=== PATIENT | male | born 1995 | race Hispanic/Latino ===

== ENCOUNTER 2024-07-23 23:11 | Emergency (ER) | payer SELFPAY ==
[2024-07-23 23:20] VITALS: BP 113/65; PULSE 76; RESP 20; TEMP 36.8; O2SAT 97
[2024-07-24] MEDS: ONDANSETRON INJ 4 MG/2 ML VIAL IV PUSH (04:31)
[2024-07-24] MEDS: FAMOTIDINE 20 MG/2 ML VIAL IV PUSH (04:32)
[2024-07-24] MEDS: MAG HYDROX/AL HYDROX/SIMETH 30 ML UDC PO (04:33)
--- NOTE | 2024-07-24 04:35 | ED.ABDPAIN ---
HPI - Abdominal Pain General Chief Complaint: Abdominal Pain Stated Complaint: abd pain Time Seen by Provider: 07/24/24 03:47 History of Present Illness HPI narrative: 29-year-old male presenting to the emergency depart with gastritis type symptoms. He is Nauruan-speaking only in an supervisor compressed yeast service was used for primary translation. Patient endorses 2 days of burning epigastric pain that feels similar to his gastritis but not responsive to Pepcid or omeprazole. Has had similar presentations in the past. Denies any nausea, vomiting, abdominal pain, diarrhea constipation. Was otherwise feeling okay. Recent taking doxycycline for an unrelated infection. No history of H pylori and no history of EGD. Does not have a local GI doctor. Related Data Allergies Allergy/AdvReac Type Severity Reaction Status Date / Time No Known Allergies Allergy Verified 07/23/24 23:23 Review of Systems Review of Systems: As reviewed above in HPI Exam Narrative: GENERAL: [Well-appearing, well-nourished, and in no acute distress.] HEAD: [Normocephalic, atraumatic.] EYES: [PERRLA and EOMI.] ENT: Nares clear, no rhinorrhea or epistaxis. Mucous membranes moist. NECK: Supple. CHEST: [Clear to auscultation. No respiratory distress.] HEART: [Regular rate and rhythm]. No murmur heard. [Normal peripheral pulses.] ABDOMEN: [Soft, nondistended], [nontender], [No rigidity or guarding] EXTREMITIES: Normal range of motion. [No edema.] SKIN: Warm, dry, no rash. NEURO: [No focal deficits]. Alert and oriented [x3.] PSYCH: [Normal mood and affect.] Course Vital Signs Vital signs: Vital Signs Temperature 36.8 C 07/23/24 23:20 Pulse Rate 76 07/23/24 23:20 Respiratory Rate 20 07/23/24 23:20 Blood Pressure 113/65 07/23/24 23:20 Pulse Oximetry 97 07/23/24 23:20 Temperature 36.8 C 07/23/24 23:20 Pulse Rate 65 07/24/24 05:01 Respiratory Rate 15 07/24/24 05:01 Blood Pressure 112/73 07/24/24 05:01 Pulse Oximetry 99 07/24/24 05:01 MDM - Abdominal Pain MDM Narrative Medical decision making narrative: 29-year-old Nauruan-speaking male presenting with gastritis type symptoms for 2 days. Reports burning epigastric pain, sensation of sour taste on back was started on burning sensation. Feels similar to gastritis although not responsive to Pepcid or omeprazole for last few days. Has never had an EGD or been diagnosed with H pylori. He has normal vital signs, normal examination, afebrile. Soft nontender nondistended abdomen. Patient was given Pepcid, Maalox, Zofran, CBC, CMP and lipase were evaluated. Suspicion presently is for gastritis, peptic ulcer disease, pancreatitis, potential for ulcerations or strictures are possible but low given his duration of symptoms. Patient was given medications and re-evaluated afterwards with improvement. Laboratory studies are largely unremarkable. Patient was encouraged to continue taking his medications and will be sent home with Maalox for as needed dyspepsia. He will be sent with referral to our local GI Dr. Herrmann for evaluation outpatient. Lab Data 07/24/24 04:36 07/24/24 04:36 Labs: Lab Results 07/24/24 Range/Units 04:36 WBC 6.6 (4.5-10.0) K/mm3 RBC 5.02 (4.6-6.20) M/mm3 Hgb 15.2 (14.0-18.0) g/dL Hct 44.0 (42.0-52.0) % MCV 87.6 (80-100) fl MCH 30.3 (26-34) pg MCHC 34.5 (32-36) g/dl RDW 13.2 (11.5-14.5) % Plt Count 177 (150-375) k/mm3 MPV 10.0 (7.4-10.4) fl Immature Gran % (Auto) 0.2 (0-0.5) % Neut % (Auto) 47.1 (45.5-73.1) % Lymph % (Auto) 39.1 (18.3-44.2) % [place] % (Auto) 12.2 H (2.6-8.5) % Eos % (Auto) 1.2 (0-4.4) % Baso % (Auto) 0.2 (0.2-1.2) % Lymph # (Auto) 2.56 (0.9-3.2) K/mm3 [place] # (Auto) 0.8 H (0.1-0.6) K/mm3 Eos # (Auto) 0.1 (0-0.3) K/mm3 Baso # (Auto) 0.0 (0.0-0.1) K/mm3 Abs Immat Gran (auto) 0.01 (0.00-0.031) K/mm3 Absolute Neuts (auto) 3.1 (1.3-6.7) K/mm3 Absolute Nucleated RBC 0.000 (0.0-0.012) K/mm3 Nucleated RBC % 0.0 (0.0-0.2) % Sodium 140 (137-145) mmol/L Potassium 3.6 (3.4-5.0) mmol/L Chloride 102 (98-107) mmol/L Carbon Dioxide 25 (22-30) mmol/L Anion Gap 13 H (4-12) mmol/L BUN 16 (9-20) mg/dL Creatinine 0.73 (0.7-1.3) mg/dL Estim Creat Clear Calc Not Reportable Estimated GFR > 60 (59 - ) Glucose 84 (65-110) mg/dL Calcium 9.7 (8.4-10.2) mg/dL Total Bilirubin 0.7 (0.2-1.3) mg/dL AST 22 (17-59) U/L ALT 21 (6-50) U/L Alkaline Phosphatase 74 (38-126) U/L Total Protein 8.0 (6.3-8.2) g/dL Albumin 4.4 (3.5-5.1) g/dL Lipase 67 (23-300) U/L Discharge Plan Discharge Clinical Impression: Gastritis, GERD with esophagitis Patient Disposition: Home, Self-Care Condition: Stable Instructions: Antibiotic Form, Gastritis (ED), Upper Endoscopy (DC) Additional Instructions: Call Dr. Herrmann from Gastroenterology to schedule an outpatient appointment. Continue taking your Pepcid and omeprazole in addition to the Maalox we have prescribed for you. Return with any new concerns. Patient Language: Nauruan Prescriptions: New alum-mag hydroxide-simeth [Maalox Advanced] 200-200-20 mg/5 mL suspension 15 ml PO QID PRN (Reason: dyspepsia) Qty: 3000 0RF Rx Instructions: administer between meals and at bedtime Follow-up/Referrals: Sincere Li MD [Physician] - 1 Week (Gastritis, EGD referral) UNKNOWN,DOCTOR [Non-Staff] - Time of Disposition: 06:13
[2024-07-24 04:50] LABS: Basophils Percent Auto 0.2 % (0.2-1.2); Eosinophils Absolute Auto 0.1 K/mm3 (0-0.3); Eosinophils Percent Auto 1.2 % (0-4.4); Hemoglobin 15.2 g/dL (14.0-18.0); Immature Granulocyte Absolute 0.01 K/mm3 (0.00-0.031); Immature Granulocyte Percent A 0.2 % (0-0.5); Lymphocytes Absolute Auto 2.56 K/mm3 (0.9-3.2); Lymphocytes Percent Auto 39.1 % (18.3-44.2); Mean Corpuscular HGB Conc 34.5 g/dl (32-36); Mean Corpuscular Hemoglobin 30.3 pg (26-34); Mean Corpuscular Volume 87.6 fl (80-100); Monocytes Absolute Auto 0.8 K/mm3 (0.1-0.6); Monocytes Percent Auto 12.2 % (2.6-8.5); Neutrophils Absolute Auto 3.1 K/mm3 (1.3-6.7); Neutrophils Percent Auto 47.1 % (45.5-73.1); Platelet Count Result 177 k/mm3 (150-375); Red Blood Count 5.02 M/mm3 (4.6-6.20); Red Cell Distribution Width 13.2 % (11.5-14.5); White Blood Count 6.6 K/mm3 (4.5-10.0)
[2024-07-24 05:01] VITALS: BP 112/73; PULSE 65; RESP 15; O2SAT 99
[2024-07-24 05:06] LABS: Alanine Aminotransferase 21 U/L (6-50); Albumin Level 4.4 g/dL (3.5-5.1); Alkaline Phosphatase 74 U/L (38-126); Anion Gap 13 mmol/L (4-12); Aspartate Amino Transferase 22 U/L (17-59); Bilirubin,Total 0.7 mg/dL (0.2-1.3); Blood Urea Nitrogen 16 mg/dL (9-20); Calcium 9.7 mg/dL (8.4-10.2); Carbon Dioxide 25 mmol/L (22-30); Chloride 102 mmol/L (98-107); Estimated Glomerular Filt Rate > 60; Glucose 84 mg/dL (65-110); Lipase 67 U/L (23-300); Potassium 3.6 mmol/L (3.4-5.0); Sodium 140 mmol/L (137-145)
[2024-07-24 06:22] VITALS: BP 110/70; PULSE 60; RESP 17; O2SAT 98
== END 2024-07-24 06:24 | disposition home or self-care (01) ==
PROVIDERS: Emergency Provider Student in an Organized Health Care Education/Training Program
DX: K29.70 Gastritis, unspecified, without bleeding (principal); K21.00 Gastro-esophageal reflux disease with esophagitis, without bleeding
CPT/HCPCS: 36415; 80053; 83690; 85025; 96374; 96375; 99284; A9270; J2405

== ENCOUNTER 2025-01-13 01:19 | Day surgery (SDC) | payer SELFPAY ==
[2025-01-07 14:55] VITALS: BMI 22.7
--- OUTSIDE RECORDS SUMMARY | 2025-01-13 01:21 | XMS_ITS | Continuity of Care Document ---
Author Organization [facility] Address [address] [place] [address] Phone Care Team Providers Care Dock Worker Name Role Phone Juan PT, DPT, Liliana Unavailable Unavaila ble Procedures Procedure Date Therapeutic Activities Neuromuscular Re-Ed Therapeutic Exercise Therapeutic Activities Neuromuscular Re-Ed Therapeutic Exercise Therapeutic Activities Neuromuscular Re-Ed Therapeutic Exercise Therapeutic Activities Neuromuscular Re-Ed Therapeutic Exercise Therapeutic Activities Neuromuscular Re-Ed Therapeutic Exercise PT Evaluation Moderate Complexity Therapeutic Activities Therapeutic Exercise Advance Directives Directive Yes / No Effective Date File Name No Information Encounters Encounter Description Practice Location Reason(s) For Visit Diagnoses Date Provider Providers Copied on Encounter [facility] [address], [place], [place], [id number], tel:[phone] [place] No Information 5 Juan Ford. . [facility], [place], [place], [id number], tel:[phone] [facility] No Information 0 5 Juan Ford. . Referring Provider: Mary Orosco , [address] [facility], [place], [address]. tel:[phone] [place] [address], [place], [place], [id number], tel:[phone] [facility] No Information 5 Martinez Liliana. . Referring Provider: Mary Orosco [address] [place] [address], [place], [place], [facility]. tel:[phone], [id number], tel:[phone] [facility] No Information 4 Martinez Liliana. . Referring Provider: Mary Orosco , [address] [place] [address], [place], [place], [facility]. tel:[phone] [address], [place], [place], [id number], tel:[phone] [facility] No Information 4 Martinez Liliana. . Referring Provider: Mary Orosco , [id number] [place] [address], [place], [place], [facility]. tel:[phone], [id number], tel:[phone] [facility] No Information 4 Martinez Liliana. . Referring Provider: Carroll [address] [place] [address], [place], [facility]. tel:[phone], [id number], tel:[phone] [facility] No Information 4 Martinez Liliana. . Referring Provider: Carroll [address] [place] [address], [place], [place], [facility]. tel:[phone] Family History Family Member Type Diagnosis Age At Onset No Information Payers Payer name Insurance type Covered green party ID Authorjoela ayana(s) Self Pay - G[employer] Social History Type Description Quantity Date Captured Comments Sex Male Smoking Status No Information Chief Complaint And Reason For Visit No Information Reason For Referral Reason For Referral No Information History Of Present Illness Encounter Date Complaint History Of Prese nt Illness No Information Functional Status Date Functional Assessmen t No Information Instructions Date Instruction Additional Infor mation No Information Assessments Type Assessment Date No Information Patient Care Teams Name Effective Dates (start - stop) Status Members No Information
[2025-01-13 06:30] VITALS: BP 108/70; PULSE 68; RESP 18; TEMP 36.6; O2SAT 98
[2025-01-13] MEDS: LACTATED RINGERS 1,000 ML 150 ML IV CONT (06:53)
--- NOTE | 2025-01-13 07:19 | SUR.OPER ---
Communication with patient via rn procedure ID#[id number].
--- NOTE | 2025-01-13 07:27 | PM.HPGS ---
History of Present Illness History of Present Illness Consent: Risks, benefits, and alternatives have been discussed and questions answered. Patient agrees to proceed with procedure. Chief complaint: Gastro-esophageal reflux disease without esophagit Narrative: Cj Paredes is a 29 year old male here for first EGD, gerd on pantoprazole Review of Systems Review of Systems: All systems reviewed & are unremarkable except as noted in HPI and below PMFSH Past Medical History Medical History (Updated 09/17/24 @ 10:56 by Sincere Li MD) Epigastric pain GERD (gastroesophageal reflux disease) Social History Social History Smoking status: Never smoker Living arrangements: with family Meds Home Medications and Allergies Home Medications ?Medication ?Instructions ?Recorded ?Confirmed ?Type aluminum-mag hydroxide-simethicone 15 ml PO QID PRN dyspepsia #3,000 07/24/24 01/07/25 Rx 200 mg-200 mg-20 mg/5 mL oral susp mL (Maalox Advanced) pantoprazole 40 mg tablet,delayed 40 mg PO QAM 01/07/25 01/07/25 History release Allergies Allergy/AdvReac Type Severity Reaction Status Date / Time No Known Allergies Allergy Verified 01/13/25 06:36 Exam Const: General: comfortable and no acute distress HENMT: Face/Nose/Sinus: Normal nares present Eyes: General: appearance normal, both eyes and all related structures Neck: Neck: no JVD Resp: Auscultation: clear to auscultation bilaterally Cardio: Rate: regular rate Rhythm: regular rhythm GI: Inspection: non-distended GI Palp: Yes Soft to palpation Skin: General skin exam: normal color Neuro: Speech: normal speech Extrem: General: normal to inspection Psych: Mental Status: mental status grossly normal Assessment and Plan Assessment and plan (1) GERD (gastroesophageal reflux disease): Code(s): K21.9 - Gastro-esophageal reflux disease without esophagitis Status: Acute Assessment and Plan: egd with bx (2) Epigastric pain: Code(s): R10.13 - Epigastric pain Status: Acute
--- NOTE | 2025-01-13 07:33 | S_PTH ---
PATIENT: Cj Lester LOC: [facility]#:[id number] AGE/SX: 29/M ROOM: RE01/13/[address]: Sincere Li MD : 1995 BED: DIS: 01/13/2025 SPEC #: [id number] RECD: 01/13/25 08:56 STATUS: CELIA STEARNS #: [id number] SUHAS: 01/13/25 07:[address]: Sincere Li DEPT: [facility] Surgical RECD BY: Kate Manning ENTERED: 01/13/25 08:57 SP TYPE: Surgical OTHR DR: ACCESS SPECIALIST PHYSICIAN Tissues: A - Small Bowel Bx B - Gastric Biopsy Procedures: Hematoxylin and Eosin Stain Gross and Microscopic Level 4
[2025-01-13 07:35] VITALS: BP 101/54; PULSE 71; RESP 17; O2SAT 98
[2025-01-13 07:45] VITALS: BP 93/58; PULSE 65; RESP 16; O2SAT 98
[2025-01-13 07:55] VITALS: BP 99/65; PULSE 68; RESP 18; O2SAT 97
--- NOTE | 2025-01-13 08:04 | SUR.PHASEII ---
Product Development Director used for discharge instructions. #[id number]
== END 2025-01-13 08:08 | disposition home or self-care (01) ==
PROVIDERS: Referring Provider Internal Medicine Gastroenterology; Visit Provider Internal Medicine Gastroenterology
PROC: 0DJ08ZZ Inspection of Upper Intestinal Tract, Via Natural or Artificial Opening Endoscopic (ICD-10-PCS; CPT 43239; principal; 2025-01-13 07:30)
DX: K21.9 Gastro-esophageal reflux disease without esophagitis (principal); K31.84 Gastroparesis
CPT/HCPCS: 43239; 88305; J7120

== ENCOUNTER 2025-02-10 08:42 | Outpatient (CLI) | payer SELFPAY ==
--- NOTE | ~2025-02-10 | NM_ITS ---
EXAM: NM gastric emptying study DATE: 02/10/2025 13:38 INDICATION: Gastroesophageal reflux disease without esophagitis. TECHNIQUE: A gastric emptying study was performed using the methodology of Evin VALLE, et al. J Nucl Med 2007; 48:568-572. The patient was given a meal consisting of 2 scrambled eggs labeled with 0.972 mCi Tc-99m sulfur colloid, 2 slices of toast, two packages of jam, and approximately 120 mL of water. Simultaneous anterior and posterior 1-min images of the abdomen were obtained with the patient supine at multiple time points over a total period of 4 hours. The geometric mean of anterior and posterior views was determined, and the percentage retention was calculated for each time point. COMPARISON: None. FINDINGS: Gastric retention of the radiotracer-labeled meal was 58%, 23%, and 5% at the 1-hour, 2-hour, and 4-hour time points, respectively. With this technique, apparent rapid gastric emptying is suggested by <30% gastric retention at 1 hour. Delayed gastric emptying is defined by gastric retention of >90% at 1 hour, >60% retention at 2 hours, or >10% retention at 4 hours. IMPRESSION: 1. Normal gastric emptying. Reviewed, dictated and finalized at location E. IMPRESSION: 1. Normal gastric emptying.
== END 2025-02-10 08:43 | disposition home or self-care (01) ==
LOC: ANHIMG 08:55
PROVIDERS: Visit Provider Internal Medicine Gastroenterology
DX: K21.9 Gastro-esophageal reflux disease without esophagitis (principal); R10.13 Epigastric pain
CPT/HCPCS: 78264; A9541